=== PATIENT | female | born 1990 | race Two or more races ===

== ENCOUNTER 2022-11-14 01:29 | Emergency (ER) | payer OTHER ==
[~2022-11-14] VITALS: Ht 160 cm; Wt 84.1 kg
[2022-11-14 01:31] VITALS: TEMP 98.1
[2022-11-14] MEDS ORDERED: AMOX1TAB16 PO (02:51)
[2022-11-14] MEDS ORDERED: PERTUSS(ACELL),DIPH,TET VAC/PF 0.5 ML SYRINGE IM. ONE (03:00)
[2022-11-14 03:07] VITALS: BP 117/78; PULSE 104; RESP 14
== END 2022-11-14 03:21 | disposition home or self-care (01) ==
LOC: EMS 01:33
DX: S01.511A Laceration without foreign body of lip, initial encounter (principal); W19.XXXA Unspecified fall, initial encounter; Y93.89 Activity, other specified; Y92.89 Other specified places as the place of occurrence of the external cause; Y99.8 Other external cause status
CPT/HCPCS: 12011; 90471; 90715; 99283